=== PATIENT | female | born 1990 | race African-American/Black ===

== ENCOUNTER 2020-11-19 16:36 | Inpatient (IN) | payer SELFPAY ==
[2020-11-19] MEDS ORDERED: Ringers Lactate 1,000 ML IV SCH (17:00)
[2020-11-19] MEDS ORDERED: BUTORPHANOL 1 MG/ML INJ IV PRN (17:00)
[2020-11-19] MEDS ORDERED: CARBOPROST TROME 250 MCG/ML IM PRN (17:00)
[2020-11-19] MEDS ORDERED: METHYLERGONOVINE 0.2MG/ML AMP IM PRN (17:00)
[2020-11-19] MEDS ORDERED: OXYTOCIN/LR 20 UNIT/1,000 ML BAG IV SCH (17:00)
[2020-11-19] MEDS ORDERED: Ringers Lactate 1,000 ML IV PRN (17:00)
[2020-11-19] MEDS ORDERED: HYDRALAZINE HCL 20 MG/ML VIAL ONE ×2 (17:43→17:51)
[2020-11-19 17:45] LABS: Absolute Lymphocytes (CBC) 0.8 K/uL (0.7-4.9); Basophils % 0.5 % (0-1.3); Hematocrit 38.5 % (36.0-45.0); Lymphocytes % 5.3 % (15.3-44.8); MPV 7.7 fL (7.6-11.3); RBC Red Blood Cell Count 5.37 M/uL (3.86-4.86)
[2020-11-19] MEDS ORDERED: LABETALOL 20 MG/4ML SYRINGE IV ONE ×2 (17:56→18:31)
[2020-11-19] MEDS ORDERED: FENTANYL CITR 100 MCG/2 ML ONE (18:26)
[2020-11-19 18:52] LABS: Protime INR 0.82
[2020-11-19] MEDS ORDERED: Oxycodone HCl/Acetaminophen 1 TAB TAB PO PRN ×2 (19:00→19:04)
[2020-11-19 19:06] LABS: Bilirubin Total 0.3 mg/dL (0.2-1.0); Protein, Total 6.3 g/dL (6.4-8.2); Uric Acid 6.2 mg/dL (2.6-6.0)
[2020-11-19 19:08] LABS: Blood Morphology Comment NOT SEEN (NOT SEEN); Platelet Estimate INCR; White Blood Cell Scan OK (OK)
[2020-11-19 20:49] LABS: Barbiturates NEGATIVE (NEGATIVE); Benzodiazepines NEGATIVE (NEGATIVE); Cocaine NEGATIVE (NEGATIVE); METHAMPHETAM NEGATIVE (NEGATIVE); Methadone NEGATIVE (NEGATIVE); Opiates NEGATIVE (NEGATIVE); Phencyclidine NEGATIVE (NEGATIVE); THC Cannibis NEGATIVE (NEGATIVE)
[2020-11-19] MEDS: DOCUSATE NA 100 MG CAP PO SCH (21:00)
[2020-11-19] MEDS ORDERED: LABETALOL HCL 100 MG TAB PO SCH (21:00)
[2020-11-19] MEDS ORDERED: DOCUSATE NA 100 MG CAP PO ONE (21:18)
[2020-11-19 21:40] LABS: RPR (Rapid Plasma Reagin) NON-REACT (NON-REACT)
[2020-11-19 21:42] LABS: Urine Appearance CLOUDY (Clear); Urine Bilirubin NEGATIVE (Negataive); Urine Blood 2+ (Negative); Urine Color YELLOW (Yellow); Urine Glucose NEGATIVE (Negative); Urine Protein 3+ (Negative); Urine Specific Gravity 1.025 (1.005-1.030); Urine Urobilinogen 0.2 mg/dL (0.2-1.0)
[2020-11-19 21:43] LABS: Urine Microscopic Reflex ORDER UMIC
[2020-11-19 21:50] LABS: Urine Bacteria <20 /HPF (<20); Urine Mucus 2+ /HPF (NONE SEEN)
[2020-11-19] MEDS ORDERED: OXYTOCIN/LR 20 UNIT/1,000 ML BAG IV ONE (23:21)
[2020-11-20 06:34] VITALS: BMI 40.6
[2020-11-20] MEDS: DOCUSATE NA 100 MG CAP PO SCH ×2 (09:24→21:00)
[2020-11-20] MEDS: IBUPROFEN 600 MG TAB PO PRN (09:24)
[2020-11-20] MEDS ORDERED: MAGNESIUM SULF/STERILE WATER 1,000 ML IV ONE (09:38)
[2020-11-20 12:44] LABS: Absolute Lymphocytes (CBC) 1.1 K/uL (0.7-4.9); Basophils % 0.1 % (0-1.3); Hematocrit 33.8 % (36.0-45.0); MPV 7.4 fL (7.6-11.3); RBC Red Blood Cell Count 4.66 M/uL (3.86-4.86)
[2020-11-20 12:52] LABS: Albumin 1.5 g/dL (3.4-5.0); Bilirubin Total 0.1 mg/dL (0.2-1.0); Potassium 3.6 mmol/L (3.5-5.1)
[2020-11-20 13:58] LABS: Blood Morphology Comment NOT SEEN (NOT SEEN); Platelet Estimate ADEQ; White Blood Cell Scan OK (OK)
[2020-11-20] MEDS: LABETALOL HCL 100 MG TAB PO SCH ×2 (14:21→21:00)
[2020-11-21] MEDS: IBUPROFEN 600 MG TAB PO PRN (05:09)
[2020-11-21] MEDS: DOCUSATE NA 100 MG CAP PO SCH (08:03)
[2020-11-21] MEDS: LABETALOL HCL 100 MG TAB PO SCH (08:04)
[2020-11-21 11:52] VITALS: BP 141/77; TEMP 97
--- NOTE | 2020-11-22 11:02 | PN ---
Date of Progress Note: 11/20/2020 Subjective: The patient reports no pain. Very small amount of vaginal bleeding. She denies headach e, right upper quadrant pain or vision changes. The patient has Fink catheter and is tolerating mag nesium sulfate without chest pain or shortness of breath. Objective: Vital Signs: Blood pressures 130s to 160s over 70s to 90s. Abdomen: Nontender. Assessment: day 1, status post spontaneous vaginal delivery of an intrauterine louise se at 38 weeks, complicated by preeclampsia with severe features. She is currently on labetalol 200 mg p.o. b.i.d. and her pressures are mostly controlled. She has an occasional elevated pressure of 1 60s over 90s. She is asymptomatic. Plan: Discontinue magnesium sulfate 24 hours after delivery. Continue 200 mg p.o. b.i.d. labetalol. WILLOW/DAVE Voice ID: [id number] Report ID: [id number]
--- NOTE | 2020-11-22 12:17 | HP ---
Date of Admission: 11/19/2020 Chief Complaint: Contractions. History Of Present Illness: The patient is a 30-year-old 1, para 0, with care with Dr. Brumfield who presented to labor and delivery with strong contractions every 5 minutes. She denied l eakage of fluid or vaginal bleeding. She states the baby was moving today. was complicate d by chronic hypertension and morbid obesity. Her last visit was over a month ago per the p atarnaldo. Past Medical History: Chronic hypertension and morbid obesity. Past Surgical History: None. Medications: Coreg. Allergies: NONE. Review of Systems: The patient denies headache, blurred vision, right upper quadrant pain, chest pain, or shortness of b reath. Physical Examination: Vital Signs: Blood pressures 233/130, pulse 110. General: She appears uncomfortable with her contractions, otherwise she appears well nourished and h er stated age. Cardiovascular: Regular rate and rhythm. Pulmonary: Clear to auscultation bilaterally. Abdomen: Obese. Nontender. Gravid. EXTREMITIES: 1+ pitting edema bilaterally. PELVIS: Cervix; complete, complete, and +1 station. AROM revealed dark brown fluid. The skul l wounds are overlapping on exam. FHTs absent. Assessment: The patient is a 30-year-old 1, para 0, who presents with preeclampsia with rupert re features, and a 38-week intrauterine demise. She is complete and +1. Plan: Begin second stage. EB/MODL Voice ID: [id number]
--- NOTE | 2020-11-22 18:53 | OP ---
Date of Procedure: 11/19/2020 Surgeon: JAKOB LAL Preoperative Diagnoses: 1.Intrauterine at 38 weeks. 2.Preeclampsia with severe features. 3.Intrauterine demise. Postoperative Diagnoses: 1.Intrauterine at 38 weeks. 2.Preeclampsia with severe features. 3.Intrauterine demise. Procedure: Spontaneous vaginal delivery with repair of first-degree laceration. Anesthesia: None. Findings: Still born male . Apgars 0, 0. Significant peeling of the skin of the face and nec k and overlapping skull bones. The placenta appeared to have an approximately 40% abruption evident by dark clot. The cord was completely hemorrhagic and thrombosed. Procedure In Detail: When I arrived to Labor and Delivery just after the patient, she was completely , and there were no heart tones confirmed by ultrasound. Artificial rupture was performed and dark brown fluid was noted. She began to push contractions with good effort. The head wa s delivered followed by the body. The patient did not wish to see the baby. The cord was clamped an d cut, and the infant was handed to the nurse. The placenta delivered spontaneously intact. Vaginal bleeding was minimal. One small first-degree laceration was repaired with an interrupted suture of 3-0 chromic. The patient tolerated the procedure well. I spent some time with her after the delivery and assured her that if she changes her mind about seeing the baby that s he could. WILLOW/DAVE Voice ID: [id number] Report ID: [id number]
--- NOTE | 2020-11-23 03:09 | DS ---
Date of Discharge: 11/21/2020 Discharge Diagnoses: 1.Intrauterine at 38 weeks. 2.Preeclampsia with severe features. 3.Intrauterine demise. 4.Morbid obesity. Procedures Performed: Spontaneous vaginal delivery. Hospital Course: The patient is a 30-year-old 1, now para 1 who presented on 11/19/2020 in a ctive labor. At the time of admission, her blood pressure was found to be 233/130 and there were no heart tones. Her delivery was uncomplicated. She declined to see the stillborn . Durin g 2nd stage of labor, she was given hydralazine 5 mg x2 doses. She was then given labetalol 20 mg IV x1 dose and 40 mg IV x1 dose. Her blood pressure decreased to 150s-160s/90s. She was started on ma gnesium sulfate at the time of pushing with a 4 g load followed by a 2 g per hour infusion. After de livery, a Fink catheter was placed. Initially, her urine output was 20-50 cc an hour. She began di uresis shortly after delivery. Her magnesium sulfate was discontinued at 24 hours along with her Fol ey catheter. Her blood pressures remained stable with only occasional elevated pressures of 160s/90s . She remained asymptomatic. At the time of discharge, she was ambulating in the room and to the [facility]. She was tolerating p.o. without nausea and vomiting. She denied headache, chest pain, short ness of breath, vision changes, and abdominal pain. Her pain from delivery was minimal and controlle d with ibuprofen. She was looking better emotionally at the time of discharge and was more able to t alk about her feelings. She was discharged home on day 2. Discharge Medications: Labetalol 200 mg p.o. b.i.d. Followup: Sunday with Dr. Stevens. Warnings: Temperature greater than 100.4, increasing pain, heavy vaginal bleeding, signs and symptom s of depression, and signs and symptoms of preeclampsia. EB/MODL Voice ID: [id number] Report ID: [id number]
[2020-11-23 12:10] LABS: HBsAG Nonreactive (Nonreactive)
== END 2020-11-21 13:00 | disposition home or self-care (01) | DRG 806 ==
LOC: L&D 16:36 → 2ND-WC 16:54
PROVIDERS: ADMIT Obstetrics & Gynecology; ATTEND Obstetrics & Gynecology
PROC: 10E0XZZ Delivery of Products of Conception, External Approach (ICD-10-PCS; principal; 2020-11-19)
PROC: 10907ZC Drainage of Amniotic Fluid, Therapeutic from Products of Conception, Via Natural or Artificial Opening (ICD-10-PCS; 2020-11-19)
PROC: 0HQ9XZZ Repair Perineum Skin, External Approach (ICD-10-PCS; 2020-11-19)
DX: O14.14 Severe pre-eclampsia complicating childbirth (principal); Z68.41 Body mass index [BMI] 40.0-44.9, adult; Z37.1 Single stillbirth; O10.911 Unspecified pre-existing hypertension complicating pregnancy, first trimester; O70.0 First degree perineal laceration during delivery; E66.01 Morbid (severe) obesity due to excess calories; Z3A.38 38 weeks gestation of pregnancy; Z20.822 Contact with and (suspected) exposure to COVID-19
CPT/HCPCS: 36415; 80053; 80307; 81003; 81015; 83735; 84550; 85025; 85384; 85610; 85730; 86592; 86900; 86901; 87340; 88307; J0360; J2590; J3010; J3475; J7120; U0003

== ENCOUNTER → 2023-08-13 | Emergency (ER) | payer OTHER ==
[~2023-08-13] MED LIST: NA CHLORIDE 0.9% 1,000 ML ONE
[2023-08-13 17:38] LABS: Absolute Lymphocytes (CBC) 0.9 K/uL (0.7-4.9); Lymphocytes % 20.6 % (15.3-44.8); MCV 65.2 fL (80-100); MPV 6.8 fL (7.6-11.3); Platelets 520 thou/uL (152-406); RBC Red Blood Cell Count 4.59 M/uL (3.86-4.86)
[2023-08-13 17:42] LABS: Protime INR 1.06
[2023-08-13 18:12] LABS: Specific Gravity > 1.030 (1.005-1.030)
[2023-08-13 18:13] LABS: Specific Gravity > 1.030 (1.005-1.030); Urine Bacteria <20 /HPF (<20); Urine Bilirubin NEGATIVE (Negative); Urine Blood Negative (Negative); Urine Clarity Turbid (Clear); Urine Color Light-Yellow (Yellow); Urine Glucose NEGATIVE (Negative); Urine Mucus 1+ /HPF (None Seen); Urine Protein TRACE (Negative); Urine RBC <5 /HPF (None Seen); Urine Urobilinogen Normal (Normal); Urine pH 5.5 (5.0-7.0)
[2023-08-13 18:16] LABS: ALT/SGPT 22 U/L (13-56); AST/SGOT 19 U/L (15-37); Albumin 3.4 g/dL (3.4-5.0); Alkaline Phosphatase 100 U/L (45-117); BUN Blood Urea Nitrogen 12 mg/dL (7-18); Bicarbonate 26 mEq/L (21-32); Bilirubin Direct < 0.1 mg/dL (0-0.2); Bilirubin Indirect, Calculated ND mg/dL (0.2-0.8); Bilirubin Total 0.3 mg/dL (0.2-1.0); Ferritin 6.8 ng/mL (8-388); Glomerular Filtration Rate 119 ml/min (=/>90); Glucose Level 67 mg/dL (74-106); Magnesium 2.1 mg/dL (1.6-2.4); Potassium 4.2 mEq/L (3.5-5.1); Protein, Total 7.7 g/dL (6.4-8.2); Sodium Level 140 mEq/L (136-145); Transferrin 311 mg/dL (200-360); Troponin High Sensitivity 4.3 pg/mL (<58.9)
--- NOTE | 2023-08-13 20:08 | ER ---
Nurse's Notes [facility] Name: Janeen Neumann Age: 33 yrs Sex: Female : 1990 Arrival Date: 08/13/2023 Time: 16:41 Bed 13 Private MD: Diagnosis: Dizziness and giddiness Presentation: 08/13 16:54 Chief complaint: Patient states: Dizziness and headache X 1 week. Coronavirus screen: ld1 At this time, the client does not indicate any symptoms associated with coronavirus-19. Ebola Screen: No symptoms or risks identified at this time. Initial Sepsis Screen: Does the patient meet any 2 criteria? No. Patient's initial sepsis screen is negative. Does the patient have a suspected source of infection? No. Patient's initial sepsis screen is negative. Risk Assessment: Do you want to hurt yourself or someone else? Patient reports no desire to harm self or others. Onset of symptoms was August 13, 2023. 16:54 Method Of Arrival: Ambulatory ld1 16:54 Acuity: TRICE 3 ld1 Triage Assessment: 16:54 General: Appears in no apparent distress. comfortable, Behavior is calm, cooperative, ld1 appropriate for age. Pain: Denies pain. EENT: No signs and/or symptoms were reported regarding the EENT system. Neuro: Level of Consciousness is awake, alert, obeys commands, Oriented to person, place, time, situation, Reports dizziness, headache. Cardiovascular: Capillary refill < 3 seconds Patient's skin is warm and dry. Respiratory: Airway is patent Respiratory effort is even, unlabored. GI: Abdomen is round non-distended. : No signs and/or symptoms were reported regarding the genitourinary system. Derm: No signs and/or symptoms reported regarding the dermatologic system. Musculoskeletal: No signs and/or symptoms reported regarding the musculoskeletal system. 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 - Social history:: Smoking status: Patient denies any tobacco usage or history of. Patient/guardian denies using alcohol. Screenin:50 [facility] ED Fall Risk Assessment (Adult) History of falling in the last 3 months, cp4 including since admission No falls in past 3 months (0 pts) Confusion or Disorientation No (0 pts) Intoxicated or Sedated No (0 pts) Impaired Gait No (0 pts) Mobility Assist Device Used No (0 pt) Altered Elimination No (0 pt) Score/Fall Risk Level 0 - 2 = Low Risk Oriented to surroundings, Maintained a safe environment, Educated pt \T\ family on fall prevention, incl call for assistance when getting out of bed, Assessed \T\ reinforced patient's understanding of fall precautions, Hourly rounding (assess needs \T\ fall precautionary measures) done. Abuse screen: Denies threats or abuse. Nutritional screening: No deficits noted. Tuberculosis screening: No symptoms or risk factors identified. Assessment: 20:50 General: Appears in no apparent distress. Behavior is calm, cooperative, appropriate cp4 for age. Vital Signs: 16:54 BP 150 / 106; Pulse 91; Resp 18; Temp 97.4(O); Pulse Ox 100% on R/A; Weight 124.28 kg; ld1 Height 5 ft. 9 in. ; Pain 0/10; 18:40 BP 158 / 102 Supine; Pulse 62; ap3 18:45 BP 159 / 103 Sitting; Pulse 69; ap3 18:49 BP 151 / 105 Standing; Pulse 65; ap3 19:58 BP 148 / 86; Pulse 71; Resp 16; Pulse Ox 100% ; cp4 16:54 Body Mass Index 40.46 (124.28 kg, 175.26 cm) ld1 16:54 Pain Scale: Adult ld1 ED Course: 16:46 Patient arrived in ED. ae5 16:54 Arm band placed on right wrist. ld1 16:55 Latasha Neumann FNP-C [facility]. kb 16:55 Don Martinez MD is Attending Physician. kb 16:55 Triage completed. ld1 17:27 Initial lab(s) drawn, by me, sent to lab. Inserted saline lock: 20 gauge in right ap3 antecubital area, using aseptic technique. Blood collected. 17:27 TRANSFERRIN SAT/IRON BINDING Sent. ap3 17:27 Ferritin Sent. ap3 17:27 B12 Sent. ap3 17:27 Basic Metabolic Panel Sent. ap3 17:27 CBC with Diff Sent. ap3 17:27 Hepatic Function Sent. ap3 17:27 Magnesium Sent. ap3 17:27 Protime (+inr) Sent. ap3 17:28 Ptt, Activated Sent. ap3 17:28 Troponin High Sensitivity Sent. ap3 17:32 Urine collected: clean catch specimen. ap3 17:32 Urinalysis w/ reflexes Sent. ap3 17:32 Test, Urine Sent. ap3 18:29 Lita Wilson is Primary Nurse. cp4 20:50 Bed in low position. Call light in reach. Side rails up X 1. Provided Education on: cp4 dizziness. 20:50 No provider procedures requiring assistance completed. cp4 20:50 intact, bleeding controlled, No redness/swelling at site. Pressure dressing applied. cp4 Administered Medications: 19:12 Drug: NS 0.9% IV 1000 ml IV at 1000 ml once Route: IV; Rate: 1000 ml; Site: right ap3 antecubital; 19:56 Follow up: Response: No adverse reaction; IV Status: Completed infusion cp4 Medication: 20:50 VIS not applicable for this client. cp4 Outcome: 20:08 Discharge ordered by . kb 20:50 Discharged to home ambulatory, cp4 20:50 Condition: stable 20:50 Discharge instructions given to patient, Instructed on discharge instructions, follow up and referral plans. Demonstrated understanding of instructions, follow-up care, 20:53 Patient left the ED. cp4 Signatures: Latasha Neumann, MEHRAN-C STEEL DETAILER-CkShelley Carmona RN RN ap3 Tg Larry RN RN ld1 Lita Wilson cp4 Shanique Lopes ae5
--- NOTE | 2023-08-13 20:08 | EDPHYS ---
Physician Documentation [facility] Name: Janeen Neumann Age: 33 yrs Sex: Female : 1990 Arrival Date: 08/13/2023 Time: 16:41 Bed 13 Private MD: ED Physician Don Martinez HPI: 08/13 17:02 This 33 yrs old Black Female presents to ER via Ambulatory with complaints of Dizziness.kb 17:02 Pt is a 33 year old female with a history of hypertension and anemia who presents for kb lightheadedness and weakness for one week. States she was seen by PCP on Sunday for this and had bloodwork done which revealed a low hemoglobin. States she called the office today and was told to come to the ER for evaluation. Denies any current bleeding. Denies blood in stool or dark stools. States she had to have blood transfusions when she was and after delivery in February 2023. . 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 - Social history:: Smoking status: Patient denies any tobacco usage or history of. Patient/guardian denies using alcohol. ROS: 17:02 Constitutional: Negative for fever, chills, and weight loss, kb 17:02 Neuro: Positive for dizziness, weakness, 17:02 All other systems are negative, Exam: 17:02 Constitutional: This is a well developed, well nourished patient who is awake, alert, kb and in no acute distress. Head/Face: Normocephalic, atraumatic. ENT: Moist Mucous membranes Cardiovascular: Regular rate Respiratory: Respirations even and unlabored. No increased work of breathing. Talking in full sentences Abdomen/GI: Soft, non-tender. No distention Skin: Warm, dry with normal turgor. Normal color. MS/ Extremity: Pulses equal, no cyanosis. Neurovascular intact. Full, normal range of motion. Neuro: Awake and alert, GCS 15, oriented to person, place, time, and situation. Moves all extremities. Normal gait. 19:15 ECG was reviewed by the Attending Physician. kb Vital Signs: 16:54 BP 150 / 106; Pulse 91; Resp 18; Temp 97.4(O); Pulse Ox 100% on R/A; Weight 124.28 kg; ld1 Height 5 ft. 9 in. ; Pain 0/10; 18:40 BP 158 / 102 Supine; Pulse 62; ap3 18:45 BP 159 / 103 Sitting; Pulse 69; ap3 18:49 BP 151 / 105 Standing; Pulse 65; ap3 19:58 BP 148 / 86; Pulse 71; Resp 16; Pulse Ox 100% ; cp4 16:54 Body Mass Index 40.46 (124.28 kg, 175.26 cm) ld1 16:54 Pain Scale: Adult ld1 MDM: 16:55 Patient medically screened. kb 17:02 Differential diagnosis: cardiac arrhythmia, generalized weakness, hypovolemia, kb idiopathic dizziness, anemia. Data reviewed: vital signs, nurses notes. 18:41 ED course: Discussed all results with pt and recommended daily iron supplement. kb Awaiting orthostatic vital signs. 20:07 Counseling: I had a detailed discussion with the patient and/or guardian regarding the kb historical points, exam findings, and any diagnostic results supporting the discharge/admit diagnosis, lab results, the need for outpatient follow up, a family practitioner, to return to the emergency department if symptoms worsen or persist or if there are any questions or concerns that arise at home. 08/13 17:00 Order name: Basic Metabolic Panel; Complete Time: 18:30 kb 08/13 17:00 Order name: CBC with Diff; Complete Time: 22:34 kb 08/13 17:00 Order name: Hepatic Function; Complete Time: 18:30 kb 08/13 17:00 Order name: Magnesium; Complete Time: 18:30 kb 08/13 17:00 Order name: Test, Urine; Complete Time: 18:30 kb 08/13 17:00 Order name: Protime (+inr); Complete Time: 17:48 kb 08/13 17:00 Order name: Ptt, Activated; Complete Time: 17:48 kb 08/13 17:00 Order name: Troponin High Sensitivity; Complete Time: 18:30 kb 08/13 17:00 Order name: Urinalysis w/ reflexes; Complete Time: 18:30 kb 08/13 17:00 Order name: B12; Complete Time: 18:30 kb 08/13 17:00 Order name: Ferritin; Complete Time: 18:30 kb 08/13 17:00 Order name: TRANSFERRIN SAT/IRON BINDING; Complete Time: 18:30 kb 08/13 17:42 Order name: CBC Smear Scan; Complete Time: 22:34 EDMS 08/13 17:00 Order name: EKG; Complete Time: 17:01 kb 08/13 17:00 Order name: Cardiac monitoring; Complete Time: 18:29 kb 08/13 17:00 Order name: EKG - Nurse/Tech; Complete Time: 19:07 kb 08/13 17:00 Order name: IV Saline Lock; Complete Time: 17:27 kb 08/13 17:00 Order name: Labs collected and sent; Complete Time: 17:27 kb 08/13 17:00 Order name: NPO; Complete Time: 17:27 kb 08/13 17:00 Order name: O2 Per Protocol; Complete Time: 18:48 kb 08/13 17:00 Order name: O2 Sat Monitoring; Complete Time: 18:29 kb 08/13 17:00 Order name: Orthostatics; Complete Time: 18:48 kb EC:15 Rate is 60 beats/min. Rhythm is regular. QRS Divide is Normal. [place] interval is normal at kb 158 msec. QRS interval is normal at 86 msec. QT interval is normal at 414 msec. Administered Medications: 19:12 Drug: NS 0.9% IV 1000 ml IV at 1000 ml once Route: IV; Rate: 1000 ml; Site: right ap3 antecubital; 19:56 Follow up: Response: No adverse reaction; IV Status: Completed infusion cp4 Disposition Summary: 08/13/23 20:08 Discharge Ordered Notes: Location: Home kb Condition: Stable kb Diagnosis - Dizziness and giddiness kb Followup: kb - With: Emergency Department - When: As needed - Reason: Worsening of condition Followup: kb - With: Private Physician - When: 2 - 3 days - Reason: Recheck today's complaints, Continuance of care, Re-evaluation by your physician Discharge Instructions: - Discharge Summary Sheet kb - Dizziness, [id number] kb Forms: - Medication Reconciliation Form kb - Thank You Letter kb - Antibiotic Education kb - Prescription Opioid Use kb - Patient Portal Instructions kb - Leadership Thank You Letter kb - School release form cp4 Signatures: Dispatcher [employer] EDLatasha Brady FNP-C FNP-Shelley Ramirez, RN RN ap3 Tg Larry, RN RN ld1 Lita Wilson cp4
[2023-08-13 20:43] LABS: Blood Morphology Comment NOTED (NOT SEEN); Hypochromasia 1+; Platelet Estimate INCR; White Blood Cell Scan OK (OK)
[2023-08-14 01:40] VITALS: TEMP 97.4; O2SAT 100
[2023-08-14 01:55] VITALS: BP 148/86
--- NOTE | 2023-08-14 17:49 | EKG ---
Test Date: 2023-08-13 Test Time: 19:02:29 Seismographer: TATO MEASUREMENT RESULTS: Intervals: Rate: 60 ND: 158 QRSD: 86 QT: 414 QTc: 414 [place]: P: -8 ND: 158 QRS: 49 T: 44 INTERPRETIVE STATEMENTS: Normal sinus rhythm Normal ECG Compared to ECG 07/18/2015 01:18:23 Sinus arrhythmia no longer present Electronically Signed On 08-14-23 17:48:34 SNIPPER by Dannie Bailey
== END ==
LOC: ER 16:41
DX: R42 Dizziness and giddiness (principal); R53.1 Weakness; I10 Essential (primary) hypertension; Z88.1 Allergy status to other antibiotic agents
CPT/HCPCS: 93005; 85025; 81001; 80048; 36415; 83735; 81025; 85610; 80076; 85730; 84484; 82728; 82607; 83540; 84466; 96360; 99284; J7030

== ENCOUNTER 2024-02-24 08:40 | Emergency (ER) | payer SELFPAY ==
--- NOTE | 2024-02-24 10:06 | RAD REPORT ---
EXAM DESCRIPTION: US - Transvaginal OB - 02/24/2024 9:12 am CLINICAL HISTORY: VAG BLEEDING COMPARISON: Transvaginal OB dated 02/21/2024 TECHNIQUE: Sonographic grayscale and color flow images of the pelvis were obtained through transvagi nal approach. FINDINGS: Uterus is normal in size measuring 9.6 cm. No contour or focal myometrial abnormality. Endometrial stripe measures 1.2 cm in thickness. Mild heterogeneous fluid within the endometrium. No focal myometrial lesions or vascularized components. Measures 3.1 x 1.5 x 1.8 cm. Left ovary measures 3.2 x 2.0 x 2.1 cm. Eight 2 cm left ovarian cyst is again seen, probably physiologic. No suspicious adnexal masses or cysts. No free fluid. IMPRESSION: 1. Small amount of heterogeneous fluid within the endometrium. No findings to suggest re tained products of conception.
--- NOTE | 2024-02-24 10:47 | ER ---
Nurse's Notes [facility] Name: Janeen Ruiz Age: 33 yrs Sex: Female : 1990 Arrival Date: 02/24/2024 Time: 08:40 Bed 2 Private MD: Diagnosis: Miscarriage Presentation: 02/23 08:51 Chief complaint: Patient states: Here for a miscarriage. Bleeding and pain ll1 have gotten better now. G4, P2. Coronavirus screen: Client denies travel out of the [place] in the last 14 days. At this time, the client does not indicate any symptoms associated with coronavirus-19. Ebola Screen: Patient denies travel to an Ebola-affected area in the 21 days before illness onset. Initial Sepsis Screen: Does the patient meet any 2 criteria? No. Patient's initial sepsis screen is negative. Does the patient have a suspected source of infection? No. Patient's initial sepsis screen is negative. Risk Assessment: Do you want to hurt yourself or someone else? Patient reports no desire to harm self or others. Onset of symptoms was February 21, 2024. 08:51 Method Of Arrival: Ambulatory ll1 08:51 Acuity: TRICE 4 ll1 Triage Assessment: 08:51 General: Appears in no apparent distress. Behavior is calm, cooperative, appropriate ll1 for age. Pain: Complains of pain in pelvis Pain currently is 2 out of 10 on a pain scale. Quality of pain is described as aching. : Reports pain pelvic cramping vaginal bleeding that is light flow. Historical: - Allergies: 08:51 Amoxicillin; ll1 - PMHx: 08:51 Hypertensive disorder; Anemia; neuropathy; ll1 - PSHx: 08:51 section; ll1 - Immunization history:: Adult Immunizations up to date. - Infectious Disease History:: Denies. - Social history:: Smoking status: Patient denies any tobacco usage or history of. Screenin:55 [facility] ED Fall Risk Assessment (Adult) History of falling in the last 3 months, db including since admission No falls in past 3 months (0 pts) Confusion or Disorientation No (0 pts) Intoxicated or Sedated No (0 pts) Impaired Gait No (0 pts) Mobility Assist Device Used No (0 pt) Altered Elimination No (0 pt) Score/Fall Risk Level 0 - 2 = Low Risk Oriented to surroundings, Maintained a safe environment. Abuse screen: Denies threats or abuse. Denies injuries from another. Nutritional screening: No deficits noted. Tuberculosis screening: No symptoms or risk factors identified. 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 db 09:55 Obstetrical Assessment: General assessment: awake and alert. Reassessment: Patient db appears in no apparent distress at this time. Patient and/or family updated on plan of care and expected duration. Pain level reassessed. Patient is alert, oriented x 3, equal unlabored respirations, skin warm/dry/pink. General: Appears in no apparent distress. comfortable, Behavior is calm, cooperative. Pain: Denies pain. Neuro: Level of Consciousness is awake, alert, obeys commands, Oriented to person, place, time, situation. Respiratory: Airway is patent Respiratory effort is even, unlabored, Respiratory pattern is regular, symmetrical. 10:35 Reassessment: Patient and/or family updated on plan of care and expected duration. Pain rs5 level reassessed. Patient is alert, oriented x 3, equal unlabored respirations, skin warm/dry/pink. Vital Signs: 08:51 BP 158 / 99; Pulse 86; Resp 17; Temp 97.3; Pulse Ox 100% on R/A; Pain 2/10; ll1 10:40 BP 142 / 80; Pulse 70; Resp 17; Pulse Ox 99% on R/A; rs5 08:51 Pain Scale: Adult ll1 ED Course: 08:44 Patient arrived in ED. gm2 08:45 Don Martinez MD is Attending Physician. ec2 08:47 Arm band placed on Patient placed in an exam room, on a stretcher. ll1 08:48 Patient has correct armband on for positive identification. Placed in gown. Bed in low rs5 position. Call light in reach. Side rails up X2. 08:48 No provider procedures requiring assistance completed. rs5 08:53 Triage completed. ll1 09:10 Vanna Phipps, EZEQUIEL is Primary Nurse. db 09:42 Missed attempt(s): 22 gauge in right antecubital area. Bleeding controlled, band aid db applied, catheter tip intact. 09:54 Inserted saline lock: 22 gauge in left antecubital area, using aseptic technique. Blood db collected. Flushed with 10 mL NS. 10:50 IV discontinued, intact, bleeding controlled, No redness/swelling at site. Pressure rs5 dressing applied. Administered Medications: No medications were administered Medication: 10:01 VIS not applicable for this client. db Outcome: 10:47 Discharge ordered by . ec2 10:50 Discharged to home ambulatory, rs5 10:50 Condition: stable 10:50 Discharge instructions given to patient, family, Instructed on discharge instructions, follow up and referral plans. Demonstrated understanding of instructions, follow-up care, 10:59 Patient left the ED. rs5 Signatures: Mari Albrecht RN RN ll1 Vanna Phipps RN RN db Anant Guzmán RN RN rs5 Don Martinez MD MD ec2 Alesha Smith [facility]
--- NOTE | 2024-02-24 10:48 | EDPHYS ---
Physician Documentation [facility] Name: Janeen Ruiz Age: 33 yrs Sex: Female : 1990 Arrival Date: 02/24/2024 Time: 08:40 Bed 2 Private MD: ED Physician Don Martinez HPI: 02/23 08:53 This 33 yrs old Black Female presents to ER via Ambulatory with complaints of Vaginal ec2 Bleeding, + Preg <12wks - vaginal cramping. 08:53 Patient arrives today for evaluation of vaginal bleeding. Patient was seen 2 days ago ec2 where she thought she was likely having a miscarriage. Had an ultrasound that showed retained products of conception. Had an hCG level obtained as well. Patient reports that the bleeding has since slowed down.. Historical: - Allergies: 08:51 Amoxicillin; ll1 - PMHx: 08:51 Hypertensive disorder; Anemia; neuropathy; ll1 - PSHx: 08:51 section; ll1 - Immunization history:: Adult Immunizations up to date. - Infectious Disease History:: Denies. - Social history:: Smoking status: Patient denies any tobacco usage or history of. ROS: 08:53 Constitutional: as per hpi ec2 Exam: 08:53 Constitutional: GEN: NAD Head: atraumatic Eyes: EOMI Ears: External ears are ec2 normal. CV: regular rate LUNGS: no respiratory distress ABD: non-distended SKIN: no evidence of rashes MSK: no evidence of trauma NEURO: moves all extremities equally Vital Signs: 08:51 BP 158 / 99; Pulse 86; Resp 17; Temp 97.3; Pulse Ox 100% on R/A; Pain 2/10; ll1 10:40 BP 142 / 80; Pulse 70; Resp 17; Pulse Ox 99% on R/A; rs5 08:51 Pain Scale: Adult ll1 MDM: 08:45 Patient medically screened. ec2 08:53 Data reviewed: vital signs. ED course: Patient arrives today for evaluation of vaginal ec2 bleeding in the setting of possible miscarriage. Examination remarkable for well-appearing nontoxic hemodynamically stable individuals otherwise in no acute distress with a reassuring examination. Will obtain repeat hCG as well as ultrasound. Differential includes completed , .. 10:15 ED course: Ultrasound shows small amount of heterogenous fluid within the endometrium, ec2 no evidence of retained POC. . 10:47 ED course: Patient also with appropriately downtrending hCG, presentation is ec2 miscarriage. will discharge home for expectant management. Return precautions given. . 02/23 10:27 Order name: HCG, Quantitative; Complete Time: 10:47 EDMS 02/23 10:06 Order name: US; Complete Time: 10:13 EDMS 02/23 10:27 Order name: Transvaginal OB EDMS Administered Medications: No medications were administered Disposition Summary: 02/24/24 10:47 Discharge Ordered Notes: Location: Home ec2 Condition: Stable ec2 Diagnosis - Miscarriage ec2 Followup: ec2 - With: Private Physician - When: - Reason: Re-evaluation by your physician Discharge Instructions: - Discharge Summary Sheet ec2 - Miscarriage, [id number] ec2 Forms: - Medication Reconciliation Form ec2 - Antibiotic Education ec2 - Prescription Opioid Use ec2 - Patient Portal Instructions ec2 - Leadership Thank You Letter ec2 Signatures: Dispatcher [employer] Mari Conde RN RN ll1 Vanna Phipps RN RN db Don Martinez MD MD ec2
[2024-02-24 11:12] VITALS: BP 158/99; TEMP 97.3; O2SAT 100
== END 2024-02-24 10:59 | disposition home or self-care (01) ==
LOC: ER 08:40
DX: O03.9 Complete or unspecified spontaneous abortion without complication (principal)
CPT/HCPCS: 36415; 76817; 84702; 99283